=== PATIENT | female | born 1985 | race Caucasian/White ===

== ENCOUNTER 2016-10-23 21:21 | Emergency (ER) | payer OTHER ==
[~2016-10-23] VITALS: Ht 167.6 cm; Wt 59.0 kg
[~2016-10-23 21:21] MED LIST: CIPROFLOXACN500 MG PO; DOXYCYCL HYC100 MG PO; LORTAB 7.57.5 MG PO; PERCOCET 5/325M1 TAB PO
[2016-10-23 21:26] VITALS: BP 140/64
[2016-10-23] MEDS ORDERED: PRENATA3 PO (21:35)
[2016-10-23 22:15] LABS: URINE BILIRUBIN - DIPSTICK NEGATIVE (NEGATIVE); URINE BLOOD DIPSTICK MODERATE (NEGATIVE); URINE CLARITY CLEAR; URINE COLOR YELLOW; URINE GLUCOSE - DIPSTICK NEGATIVE (NEGATIVE); URINE KETONE NEGATIVE (NEGATIVE); URINE LEUK ESTERASE NEGATIVE (NEGATIVE); URINE NITRITE - DIPSTICK NEGATIVE (Negative); URINE PH 5.5 (4.5-8.0); URINE PROTEIN - DIPSTICK NEGATIVE (NEG-TRACE); URINE SPECIFIC GRAVITY >=1.030
[2016-10-23 22:20] LABS: BARBITURATES NEGATIVE (NEGATIVE); COCAINE NEGATIVE (NEGATIVE); METHADONE NEGATIVE (NEGATIVE); OXCYCODONE NEGATIVE (NEGATIVE); TETRAHYDROCANNABIONOL NEGATIVE (NEGATIVE); TRICYLIC ANTIDEPRESSANTS NEGATIVE (NEGATIVE)
[2016-10-23 22:29] LABS: URINE SQUAMOUS EPITHELIAL CELL FEW EPI/hpf (0-FEW)
== END 2016-10-23 22:11 | disposition left against medical advice (07) | DRG 951 ==
LOC: ED 21:21
PROVIDERS: Emergency Medicine
DX: F17.210 Nicotine dependence, cigarettes, uncomplicated (principal); R20.0 Anesthesia of skin; Z86.73 Personal history of transient ischemic attack (TIA), and cerebral infarction without residual deficits; Z91.19 Patient's noncompliance with other medical treatment and regimen

== ENCOUNTER 2017-01-29 16:11 | Emergency (ER) | payer OTHER ==
[~2017-01-29] VITALS: Ht 167.6 cm; Wt 55.0 kg
[~2017-01-29 16:11] MED LIST changes: +PRENATA3 PO
[2017-01-29] MEDS ORDERED: NORCO1 TA1 PO (17:40)
[2017-01-29 17:45] VITALS: BP 151/81
[2017-01-29] MEDS ORDERED: ZOFRAN4 MG/TAB PO (17:55)
[2017-01-30] MEDS ORDERED: SILVADENE1 % EX (10:40)
== END 2017-01-29 17:55 | disposition home or self-care (01) | DRG 935 ==
LOC: ED 16:11
PROC: 2W2CX4Z Dressing of Right Lower Arm using Bandage (ICD-10-PCS; principal; 2017-01-29)
PROC: 2W22X4Z Dressing of Neck using Bandage (ICD-10-PCS; 2017-01-29)
PROC: 2W2QX4Z Dressing of Right Lower Leg using Bandage (ICD-10-PCS; 2017-01-29)
DX: T20.17XA Burn of first degree of neck, initial encounter (principal); T22.111A Burn of first degree of right forearm, initial encounter; T24.101A Burn of first degree of unspecified site of right lower limb, except ankle and foot, initial encounter; F17.210 Nicotine dependence, cigarettes, uncomplicated; X03.0XXA Exposure to flames in controlled fire, not in building or structure, initial encounter

== ENCOUNTER 2017-01-30 09:55 | Emergency (ER) | payer OTHER ==
[~2017-01-30] VITALS: Ht 167.6 cm; Wt 55.0 kg
[~2017-01-30 09:55] MED LIST changes: +NORCO1 TA1 PO; +ZOFRAN4 MG/TAB PO
[2017-01-30 10:40] VITALS: BP 118/77
[2017-01-30] MEDS ORDERED: SILVADENE1 % EX (10:40)
== END 2017-01-30 10:40 | disposition home or self-care (01) | DRG 950 ==
LOC: ED 09:55
DX: T20.1 Burn of first degree of head, face, and neck (principal); T22.111D Burn of first degree of right forearm, subsequent encounter; T24.101D Burn of first degree of unspecified site of right lower limb, except ankle and foot, subsequent encounter

== ENCOUNTER 2017-05-03 12:05 | Emergency (ER) | payer OTHER ==
[~2017-05-03] VITALS: Ht 167.6 cm; Wt 58.0 kg
[~2017-05-03 12:05] MED LIST changes: +SILVADENE1 % EX
[2017-05-03] MEDS ORDERED: TRAMADOL HYDROC50 MG PO (13:17)
[2017-05-03] MEDS ORDERED: AMOXICILLIN500 M2 PO (13:17)
[2017-05-03] MEDS ORDERED: IBUPROFEN600 MG PO (13:17)
[2017-05-03 13:20] VITALS: BP 135/77
== END 2017-05-03 13:25 | disposition home or self-care (01) | DRG 159 ==
LOC: ED 12:05
DX: K02.9 Dental caries, unspecified (principal); F17.210 Nicotine dependence, cigarettes, uncomplicated; K08.89 Other specified disorders of teeth and supporting structures

== ENCOUNTER 2018-01-01 18:39 | Emergency (ER) | payer SELFPAY ==
[~2018-01-01] VITALS: Ht 167.6 cm; Wt 60.0 kg
[~2018-01-01 18:39] MED LIST changes: +AMOXICILLIN500 M2 PO; +IBUPROFEN600 MG PO; +TRAMADOL HYDROC50 MG PO
[2018-01-01 19:38] LABS: HEMOGLOBIN 14.1 g/dl (12.0-16.0); IMMATURE GRANULOCYTES 0.2 % (0.0-5.0); MEAN CELL VOLUME 93.8 fL CALC (80.0-100.0); MEAN CORPUSCULAR HGB 32.3 pG CALC (26.0-32.0); MEAN CORPUSCULAR HGB CONC 34.4 g/L CALC (32.0-36.0); NEUT# 4.37 thou/uL (2.00-7.15); RED BLOOD COUNT 4.37 mill/uL (4.20-5.60); RED CELL DISTRI WIDTH 12.4 % (11.5-15.5)
[2018-01-01 19:39] LABS: URINE BILIRUBIN - DIPSTICK NEGATIVE (NEGATIVE); URINE BLOOD DIPSTICK NEGATIVE (NEGATIVE); URINE COLOR YELLOW; URINE GLUCOSE - DIPSTICK NEGATIVE (NEGATIVE); URINE KETONE NEGATIVE (NEGATIVE); URINE LEUK ESTERASE NEGATIVE (NEGATIVE); URINE NITRITE - DIPSTICK NEGATIVE (Negative); URINE PH 7.5 (4.5-8.0); URINE PROTEIN - DIPSTICK NEGATIVE (NEG-TRACE); URINE SPECIFIC GRAVITY 1.015
[2018-01-01 19:55] LABS: URINE CLARITY CLEAR
[2018-01-01 20:05] LABS: ALBUMIN 3.9 g/dL (3.2-5.0); ALKALINE PHOSPHATASE 43 u/l (38-126); ANION GAP 8 (6-22 (CALC)); BILIRUBIN, TOTAL 0.4 mg/dL (0.0-1.4); BUN 11 mg/dL (7-17); BUN/CREATININE RATIO 14 (12-20 (CALC)); CARBON DIOXIDE 26 mmol/l (22-30); CHLORIDE 109 mmol/l (95-108); CREATININE 0.8 mg/dL (0.5-1.0); GFR > 60 ML/MIN (>=60 (CALC)); GFR FOR AFR.AMER. > 60 ML/MIN (>=60 (CALC)); POTASSIUM 4.1 mmol/l (3.5-5.1); SGOT/AST 18 u/l (14-36); SODIUM 140 mmol/l (137-146); TOTAL PROTEIN 6.9 g/dL (6.3-8.2)
[2018-01-01 21:05] VITALS: BP 115/70
== END 2018-01-01 21:05 | disposition home or self-care (01) | DRG 833 ==
LOC: ED 18:39
PROVIDERS: Family Medicine
DX: O26.891 Other specified pregnancy related conditions, first trimester (principal); R10.2 Pelvic and perineal pain; M54.5 Low back pain; R50.9 Fever, unspecified; Z3A.01 Less than 8 weeks gestation of pregnancy

== ENCOUNTER → 2018-03-29 | Outpatient (REF) | payer OTHER | END | disposition home or self-care (01) | LOC: LAB 10:51 | PROVIDERS: ATTEND Obstetrics & Gynecology | DX: Z34.02 Encounter for supervision of normal first pregnancy, second trimester (principal) ==